=== PATIENT | female | born 1990 | race African-American/Black ===

== ENCOUNTER 2021-01-12 10:39 | Outpatient (CLI) | payer BC, MEDICAID, SELFPAY ==
--- NOTE | ~2021-01-12 | US_ITS ---
EXAMINATION: 1. US OB follow up 2. US OB f/u add gest DATE: 01/12/2021 12:42 INDICATION: Twin . TECHNIQUE: Real-time ultrasound of the pelvis was performed. COMPARISON: None. FINDINGS: There are two living fetuses in transverse lie by a thick membrane. The amniotic fluid volu mes are subjectively normal in both sacs. The placentas are anterior and fundal. Fetus A demonstrates a heart rate of 157 beats per minute (bpm). Fetus B demonstrates a heart rate of 149 bpm. For fetus A, the following biometric data were obtained: Biparietal diameter (BPD): 3.9 cm; head circumference (HC): 15.0 cm; abdominal circumference (AC): 12 .2 cm; femur length (FL): 2.6 cm. These measurements are concordant. Estimated weight is 217 g +/- 33 g, which correlates with 50th percentile when 06/16/21 is used as estimated date of delivery. As single measurements, these parameters are each equal to the following estimated gestational ages: BPD: 17 weeks 6 days. HC: 18 weeks 0 days. AC: 17 weeks 6 days. FL: 18 weeks 0 days. estimated gestational age based solely on measurements from this exam is 18 weeks 0 days +/- 1 weeks 2 days. For fetus B, the following biometric data were obtained: Biparietal diameter (BPD): 3.9 cm; head circumference (HC): 15.0 cm; abdominal circumference (AC): 12 .4 cm; femur length (FL): 2.6 cm. These measurements are concordant. Estimated weight is 218 g +/- 33 g, which correlates with 52nd percentile. As single measurements, these parameters are each equal to the following estimated gestational ages: BPD: 17 weeks 6 days. HC: 18 weeks 1 days. AC: 18 weeks 0 days. FL: 18 weeks 0 days. estimated gestational age based solely on measurements from this exam is 18 weeks 0 days +/- 1 weeks 2 days. IMPRESSION: 1. Dichorionic, diamniotic twins in transverse lie. 2. Estimated weights of 217 g and 218 g, which correlate with 50th percentile and 52nd percent ile, respectively, when 06/16/21 is used as the estimated date of delivery. Reviewed, dictated and finalized at location A. [employer] IMPRESSION: 1. Dichorionic, diamniotic twins in transverse lie. 2. Estimated weights of 217 g and 218 g, which correlate with 50th perce ntile and 52nd percentile, respectively, when 06/16/21 is used as the estimated date of delivery.
== END 2021-01-12 10:40 | disposition home or self-care (01) ==
LOC: ANHIMG 10:43
PROVIDERS: Visit Provider Obstetrics & Gynecology
DX: Z36.9 Encounter for antenatal screening, unspecified (principal); Z3A.18 18 weeks gestation of pregnancy
CPT/HCPCS: 76816

== ENCOUNTER 2021-02-13 10:48 | Outpatient (CLI) | payer BC, MEDICAID, SELFPAY ==
--- NOTE | ~2021-02-13 | US_ITS ---
CORRECTED REPORT US OB >= 14 wk fetus add gest changed to US OB f/u add gest 02/19/2021 sef EXAMINATION: US OB follow up, US OB f/u add gest DATE: 02/13/2021 11:47 (accession [id number]), 02/13/2021 11:50 (accession [id number]) INDICATION: Twin growth assessment, low-lying placenta, second trimester TECHNIQUE: Real-time ultrasound of the pelvis was performed. COMPARISON: None. FINDINGS: Again noted are two fetuses in transverse lie by a thin membrane. The amniotic fluid index is subjectively normal for both gestational sacs. Baby A: The placenta is to the anterior/left and 1.6 cm from the internal cervical os. heart rate is 147 beats per minute (bpm). cardiac activity and movement are noted. The amniotic fluid index is subjectively normal. The following biometric data were obtained: Biparietal diameter (BPD): 5.6 cm; head circumference (HC): 20.4 cm; abdominal circumference (AC): 17.5 cm; femur length (FL): 3.7 cm. These measurements are concordant. Estimated weight is 485 g +/- 72 g, which correlates with the 33rd percentile when 06/16/2021 is used as estimated date of delivery. As single measurements, these parameters are each equal to the following estimated gestational ages with ranges of +/- 2 standard deviations: BPD: 23 weeks 0 days +/- 1 weeks 5 days. HC: 22 weeks 4 days +/- 1 weeks 3 days. AC: 22 weeks 3 days +/- 2 weeks 0 days. FL: 21 weeks 5 days +/- 1 weeks 6 days. estimated gestational age based solely on measurements from this exam is 22 weeks 3 days +/- 1 weeks 4 days. Baby B: The placenta is to the right. heart rate is 147 beats per minute (bpm). cardiac activity and movement are noted. The amniotic fluid index is subjectively normal. The following biometric data were obtained: Biparietal diameter (BPD): 5.6 cm; head circumference (HC): 20.7 cm; abdominal circumference (AC): 17.9 cm; femur length (FL): 3.7 cm. These measurements are concordant. Estimated weight is 507 g +/- 76 g, which correlates with the 45th percentile when 06/16/2021 is used as estimated date of delivery. As single measurements, these parameters are each equal to the following estimated gestational ages with ranges of +/- 2 standard deviations: BPD: 23 weeks 1 days +/- 1 weeks 5 days. HC: 22 weeks 6 days +/- 1 weeks 3 days. AC: 22 weeks 5 days +/- 2 weeks 0 days. FL: 22 weeks 0 days +/- 1 weeks 6 days. estimated gestational age based solely on measurements from this exam is 22 weeks 5 days +/- 1 weeks 4 days. IMPRESSION: 1. Dichorionic, diamniotic twins in transverse lie. 2. Estimated weight is 485 g for baby A and 507 g for baby B, which correlate with the 33rd and 45th percentile, respectively, when 06/16/2021 is used as estimated date of delivery. 3. Low-lying placenta for baby A. Reviewed, dictated and finalized at location A. MTDD IMPRESSION: 1. Dichorionic, diamniotic twins in transverse lie. 2. Estimated weight is 485 g for baby A and 507 g for baby B, which corre late with the 33rd and 45th percentile, respectively, when 06/16/2021 is used as estimated date of delivery. 3. Low-lying placenta for baby A.
== END 2021-02-13 10:49 | disposition home or self-care (01) ==
PROVIDERS: Visit Provider Obstetrics & Gynecology
DX: O44.40 Low lying placenta NOS or without hemorrhage, unspecified trimester (principal); O30.009 Twin pregnancy, unspecified number of placenta and unspecified number of amniotic sacs, unspecified trimester; Z3A.22 22 weeks gestation of pregnancy
CPT/HCPCS: 76810; 76816

== ENCOUNTER → 2021-03-09 11:20 | Outpatient (CLI) | payer BC, MEDICAID, SELFPAY ==
--- NOTE | ~2021-03-09 | US_ITS ---
EXAMINATION: US OB follow up, US OB f/u add gest DATE: 03/09/2021 12:02 INDICATION: Multiple gestations. Estimated gestational age of 25 weeks and 6 days. TECHNIQUE: Real-time ultrasound of the pelvis was performed. COMPARISON: Ultrasound 02/13/2021, 01/12/2021 FINDINGS: There are 2 intrauterine fetuses in separate gestational sacs. Fetus A is in vertex presentation. The placenta is anterior, 3.4 cm from the cervix. heart rate is 151 beats per minute (bpm). The am niotic fluid volume is subjectively normal in this gestational sac. The following biometric data were obtained for Fetus A: Biparietal diameter (BPD): 6.6 cm; head circumference (HC): 23.9 cm; abdominal circumference (AC): 20 .4 cm; femur length (FL): 4.7 cm. These measurements are concordant. Estimated weight is 809 g +/- 121 g, which correlates with 23rd percentile when 06/16/21 is used as estimated date of delivery. As single measurements, these parameters are each equal to the following estimated gestational ages w ith ranges of +/- 2 standard deviations: BPD: 26 weeks 4 days (24 weeks 3 days - 28 weeks 5 days). HC: 26 weeks 0 days (24 weeks 0 days - 28 weeks 0 days). AC: 25 weeks 0 days (22 weeks 6 days - 27 weeks 2 days). FL: 25 weeks 4 days (23 weeks 4 days - 27 weeks 5 days). estimated gestational age based solely on measurements from this exam is 25 weeks 6 days +/- 1 weeks 6 days. Fetus B is in transverse lie. The fundus is right posterior and fundal. The amniotic fluid volume is subjectively normal in this sac. The following biometric data were obtained for Fetus B: Biparietal diameter (BPD): 6.8 cm; head circumference (HC): 24.7 cm; abdominal circumference (AC): 20 .7 cm; femur length (FL): 5.0 cm. These measurements are discordant with high FL/AC. Estimated weight is 887 g +/- 133 g, which correlates with 48th percentile when 06/16/21 is used as estimated date of delivery. As single measurements, these parameters are each equal to the following estimated gestational ages w ith ranges of +/- 2 standard deviations: BPD: 27 weeks 1 days (25 weeks 0 days - 29 weeks 3 days). HC: 26 weeks 6 days (24 weeks 5 days - 28 weeks 6 days). AC: 25 weeks 2 days (23 weeks 0 days - 27 weeks 3 days). FL: 26 weeks 6 days (24 weeks 5 days - 28 weeks 6 days). estimated gestational age based solely on measurements from this exam is 26 weeks 4 days +/- 1 weeks 6 days. IMPRESSION: 1. Living dichorionic, diamniotic twin fetuses in vertex presentation and transverse lie, respectivel y. 2. Fetus A estimated weight is 809 g +/- 121 g, which correlates with 23rd percentile when 05/22 06/10 is used as estimated date of delivery. 3. Fetus B estimated weight is 887 g +/- 133 g, which correlates with 48th percentile. 4. Discordant biometrics for Fetus B with FL/AC greater than 2 standard deviations above the mean. Reviewed, dictated and finalized at location B. IMPRESSION: 1. Living dichorionic, diamniotic twin fetuses in vertex presentation and trans verse lie, respectively. 2. Fetus A estimated weight is 809 g +/- 121 g, which correlates with 23 rd percentile when 06/16/21 is used as estimated date of delivery. 3. Fetus B estimated weight is 887 g +/- 133 g, which correlates with 48 th percentile. 4. Discordant biometrics for Fetus B with FL/AC greater than 2 standard deviat ions above the mean.
== END ==
PROVIDERS: Visit Provider Obstetrics & Gynecology
DX: O30.90 Multiple gestation, unspecified, unspecified trimester (principal); Z3A.00 Weeks of gestation of pregnancy not specified
CPT/HCPCS: 76816

== ENCOUNTER 2021-03-30 07:26 | Outpatient (RCR) | payer BC, MEDICAID, SELFPAY ==
[2021-03-27 20:13] LABS: Hematocrit 33.2 % (37.0-47.0); Hemoglobin 10.9 g/dL (12.0-15.0); Mean Corpuscular HGB Conc 32.8 g/dl (32-36); Mean Corpuscular Volume 94.3 fl (80-100); Mean Platelet Volume 10.9 fl (7.4-10.4); Platelet Count Result 271 k/mm3 (150-375); Red Blood Count 3.52 M/mm3 (4.2-5.4); Red Cell Distribution Width 13.2 % (11.5-14.5)
[2021-03-27 20:21] LABS: Glucose 1 Hour PP 50gm Dose 117 mg/dL
[2021-03-30] MEDS: RHO(D) IMMUNE GLOBULIN 300 MCG/2 ML SYRINGE IM (15:07)
[2021-03-31 16:09] LABS: HIV 1 2 Ag Ab 4th Gen w Rflxs Non-reactive (Non-reactive)
== END 2021-03-30 07:28 | disposition home or self-care (01) ==
LOC: ANHBWCLAB 07:26
PROVIDERS: Visit Provider Obstetrics & Gynecology
DX: Z29.13 Encounter for prophylactic Rho(D) immune globulin (principal); O36.0190 Maternal care for anti-D [Rh] antibodies, unspecified trimester, not applicable or unspecified; Z3A.00 Weeks of gestation of pregnancy not specified
CPT/HCPCS: 36415; 82947; 85027; 85461; 87389; 90384; 96372; J2790

== ENCOUNTER 2021-06-01 08:34 | Outpatient (RCR) | payer BC, MEDICAID, SELFPAY ==
[2021-04-24 15:32] VITALS: BP 94/65; PULSE 96
[2021-04-28 12:20] VITALS: PULSE 105
[2021-05-01 16:43] VITALS: BP 96/65; PULSE 99
[2021-05-04 17:05] VITALS: BP 95/66; PULSE 107
[2021-05-08 14:35] VITALS: BP 90/74; PULSE 93
[2021-05-12 14:48] VITALS: BP 99/72; PULSE 105
[2021-05-15 16:17] VITALS: BP 112/73; PULSE 102
[2021-05-18 17:05] VITALS: BP 90/69
[2021-05-22 16:18] VITALS: BP 105/71; PULSE 80
[2021-05-25 11:07] VITALS: BP 103/73; PULSE 101
[2021-05-29 14:48] VITALS: BP 103/72; PULSE 88
--- NOTE | ~2021-06-01 | US_ITS ---
EXAMINATION: US OB limited DATE: 06/01/2021 09:29 INDICATION: Twin gestation. Third trimester. TECHNIQUE: Real-time ultrasound of the pelvis was performed. COMPARISON: Ultrasound 03/09/2021, 01/12/2021 FINDINGS: There are 2 fetuses in transverse lie. Baby A's head is to the left. Baby B's head is to the right. T he placentas are anterior and fundal/posterior. heart rate is 144 beats per minute (bpm) for Ba by A and 154 bpm for Baby B. IMPRESSION: 1. Living dichorionic, diamniotic twin fetuses, both in transverse lie. Reviewed, dictated and finalized at location A.
[2021-06-01 09:07] VITALS: BP 103/72; PULSE 88
== END 2021-06-08 13:25 | disposition home or self-care (01) ==
LOC: ANHOBOP 08:34
PROVIDERS: Visit Provider Obstetrics & Gynecology
DX: O30.043 Twin pregnancy, dichorionic/diamniotic, third trimester (principal); Z3A.32 32 weeks gestation of pregnancy; Z3A.33 33 weeks gestation of pregnancy; Z3A.34 34 weeks gestation of pregnancy; Z3A.35 35 weeks gestation of pregnancy; Z3A.36 36 weeks gestation of pregnancy; Z3A.37 37 weeks gestation of pregnancy
CPT/HCPCS: 59025; 76815

== ENCOUNTER 2021-06-05 06:01 | Inpatient (IN) | payer BC, MEDICAID, SELFPAY ==
[2021-06-05] VITALS (111 sets, daily range): BP systolic 80–171; BP diastolic 49–114; PULSE 46–89; RESP 12–20; TEMP 36–36.7; O2SAT 87–100
--- NOTE | 2021-06-05 06:12 | WPDANESEPPF ---
Anes - Initial Pre Proc Eval Procedure: Operation Date: 06/05/21 07:30 Proposed Procedures p Primary Section-Twins - Staci Slater MD Date/Time: 06/05/21 06:12 Surgeon: Staci Slater MD Pre Op Diagnosis: Labor Patient Data Age: 30 Gender: F Height: Weight: Allergies Allergy/AdvReac Type Severity Reaction Status Date / Time No Known Allergies Allergy Verified 05/29/21 13:48 Home Medications Medication Instructions Recorded Confirmed Type 12-iron 29 mg-methfolate 1 ea PO DAILY #90 ea 11/11/20 05/29/[address]-dha [address] calcium carbonate 200 mg calcium 200 mg PO BID PRN 03/09/21 05/29/21 History (500 mg) chewable tablet Patient hx anesthesia problems: none Family hx anesthesia problems: none PMFSH Past Medical History Medical History x2 Asthma Surgical History Surgical History [place] teeth extracted 2019 Family History Family History Mother Hypertension Social History Social History Smoking status: Never smoker Alcohol intake: never Substance use: never Gender identity (if verbalized by the patient): Female Spiritual care concerns: No Anes - Eval Final PreProcedure Day of Procedure 06/05/21 06:12 Patient weight: overweight Heart: regular rate and rhythm Lungs: clear to auscultation Airway: Mallampati scale class II Neurological: alert and oriented Last oral intake: >/= 8 hours ASA classification: II Emergent: no Anesthetic plan: proceed Anesthesia type and monitoring: regional spinal and standard monitoring Informed Consent: The patient's anesthetic plan and its attendant risks and benefits were discussed with the patient/family/POA. Questions were solicited and answers provided to the satisfaction of the patient/family/POA.
[2021-06-05 07:04] LABS: Basophils Percent Auto 0.4 % (0.2-1.2); Eosinophils Percent Auto 0.6 % (0-4.4); Hematocrit 31.5 % (37.0-47.0); Hemoglobin 10.4 g/dL (12.0-15.0); Immature Granulocyte Absolute 0.05 K/mm3 (0.00-0.031); Immature Granulocyte Percent A 0.7 % (0-0.5); Lymphocytes Absolute Auto 2.25 K/mm3 (0.9-3.2); Lymphocytes Percent Auto 32.6 % (18.3-44.2); Mean Corpuscular Hemoglobin 29.8 pg (26-34); Mean Corpuscular Volume 90.3 fl (80-100); Mean Platelet Volume 12.4 fl (7.4-10.4); Monocytes Absolute Auto 0.9 K/mm3 (0.1-0.6); Monocytes Percent Auto 12.3 % (2.6-8.5); Neutrophils Absolute Auto 3.7 K/mm3 (1.3-6.7); Neutrophils Percent Auto 53.4 % (45.5-73.1); Platelet Count Result 144 k/mm3 (150-375); Red Blood Count 3.49 M/mm3 (4.2-5.4); Red Cell Distribution Width 13.2 % (11.5-14.5); White Blood Count 6.9 K/mm3 (4.5-10.0)
--- NOTE | 2021-06-05 07:19 | P.HPUP_ITS ---
History and Physical Update Update Date/Time: 06/05/21 07:19 History and Physical has been reviewed, including an updated exam of the patient. There are NO changes in the patient's condition. Bedside U/S confirms transverse presentation of baby A so C section still recommended, and she a grees. Risks, benefits, and alternatives have been discussed and questions answered. Patient agrees to proceed with procedure.
--- NOTE | 2021-06-05 07:19 | PM.IMHP ---
H&P: HPI History of Present Illness Date/Time: 06/05/21 07:19 at 38+3 with di-di twins here for C section due to malpresentation baby A. No complaints today Chief Complaint: twin , twin A transverse Review of Systems Review of Systems: All systems reviewed & are unremarkable except as noted in HPI and below PMFSH Past Medical History Medical History x2 Asthma Surgical History Surgical History [place] teeth extracted 2019 Family History Family History Mother Hypertension Social History Social History Smoking status: Never smoker Alcohol intake: never Substance use: never Gender identity (if verbalized by the patient): Female Spiritual care concerns: No Meds Home Medications and Allergies Home Medications Medication Instructions Recorded Confirmed Type 12-iron 29 mg-methfolate 1 ea PO DAILY #90 ea 11/11/20 05/29/21 Rx [address]-dha [address] calcium carbonate 200 mg calcium 200 mg PO BID PRN 03/09/21 05/29/21 History (500 mg) chewable tablet Allergies Allergy/AdvReac Type Severity Reaction Status Date / Time No Known Allergies Allergy Verified 05/29/21 13:48 Vital Signs Vital Signs - 24 hr 06/05/21 06:34 06/05/21 06:45 Pulse Rate 87 80 Blood Pressure 121/94 H 112/87 Exam Const: General: healthy appearing, no acute distress, alert and awake Resp: Auscultation: clear to auscultation bilaterally Cardio: Rate: regular rate Rhythm: regular rhythm GI: Inspection: non-distended and other (gravid) GI Palp: Yes Soft to palpation and No Tenderness to palpation present (GI) Extrem: General: no pedal edema and no calf tenderness Psych: Mental Status: mental status grossly normal H&P: Results Labs Labs: Short CBC 06/05/21 Range/Units 06:55 WBC 6.9 (4.5-10.0) K/mm3 Hgb 10.4 L (12.0-15.0) g/dL Hct 31.5 L (37.0-47.0) % Plt Count 144 L (150-375) k/mm3 Assessment and Plan Assessment and plan (1) Dichorionic diamniotic twin gestation: Code(s): O30.049 - Twin , dichorionic/diamniotic, unspecified trimester Status: Acute Assessment and Plan: Proceed with primary C section due to transverse presentation of twin A. She signed consent after risks, benefits, complications, and alternatives discussed. She expressed understanding and agrees (2) Transverse or oblique presentation: Code(s): O32.2XX0 - Maternal care for transverse and oblique lie, not applicable or unspecified Status: Acute
[2021-06-05] MEDS: LACTATED RINGERS 250 ML 999 ML IVPB (07:20)
[2021-06-05] MEDS: LACTATED RINGERS 1,000 ML 125 ML IV CONT (07:20)
--- NOTE | 2021-06-05 08:37 | P.OP_ITS ---
Procedure Note - Detailed Date of Procedure 06/05/21 Pre-op Diagnosis Twin gestation, transverse presentation twin A Post-op Diagnosis same Procedure Performed Primary LTCS Surgeon Staci Slater MD Anesthesia spinal Indications Full term twin , transverse presentation twin A Findings Two male infants, baby A-transverse, Apgars 6/8, 5#11oz; baby B-transverse, Apgars 8/9, 5#13oz; normal uterus, tubes, and ovaries Description of Procedure She was taken to the operating room where spinal anesthesia was obtained and found to be adequate. She was prepared and draped in the normal sterile fashion in the dorsal supine position with a leftward tilt. A Pfannenstiel skin incision was made with a scalpel and extended to the underlying layer of fascia. The fascia was incised in the midline with a scalpel then extended laterally with the Cash scissors. The underlying rectus muscles were dissected off bluntly and sharply. The rectus muscles were in the midline. The peritoneum was entered sharply and extended inferiorly and superiorly with good visualization of the bladder. The bladder blade was inserted. The lower uterine segment was incised in a transverse fashion with the scalpel. The incision was stretched in a cephalocaudal direction. The membranes were ruptured with clear fluid noted of baby A. Baby A's back was toward the incision. The hips were also near the incision. S placed on the hips until the level were delivered. The head was flexed and brought easily through the incision. The cord was clamped x2 and cut. The was passed to the waiting nurse. Cord gas and cord blood was obtained. Exploration of the uterus revealed membranes still intact for baby B. baby B had been transverse but was easily pushed toward vertex presentation. Membranes were ruptured for baby B with clear fluid noted. The head was delivered atraumatically. The shoulders and body were delivered easily. The cord was clamped x2 and cut. The infant was passed to the waiting nurse. Cord gas and cord blood was obtained for baby B. both placentas were spontaneously delivered. The uterus was exteriorized and cleared of all clot and debris. The uterine i ncision was closed using 0 Vicryl in a running locked fashion. The uterus was returned to the abdomen. The gutters were cleared of all clots and debris. Uterine incision was reinspected with excellent hemostasis noted. The rectus muscles were approximated using an 0 Vicryl [id number] suture. Any bleeding points on the rectus muscles were cauterized. The fascia was closed using 0 Vicryl in a running fashion. The subcutaneous tissue was irrigated. All bleeding points were cauterized. The skin was closed using Insorb absorbable william. She tolerated the procedure well. Sponge, lap, needle, and instrument counts were correct x2. She was taken to the recovery room in stable condition. Estimated Blood Loss 705 Drains Yes (Diaz) Packing No Pathology yes Complications No immediate complications Condition stable Disposition floor
[2021-06-05] MEDS: diphenhydrAMINE HCl INJ 50 MG/ML VIAL 25 MG IV PUSH (12:00)
[2021-06-05] MEDS: OXYTOCIN 30 UNITS/NS 500 ML 30 UNITS/500 ML BAG 125 UNITS IV CONT (12:06)
[2021-06-05 12:56] LABS: Rapid Plasma Reagin Non-Reactive (NonReactive)
--- NOTE | 2021-06-05 13:10 | PC.NURSE ---
Called Dr. Slater with BPs. Orders received. May transfer pt to PP after drawing labs. Call for BPs >165/105.
--- NOTE | 2021-06-05 13:33 | PC.NURSE ---
Patient transferred to post room #[id number] via stretcher. Support person present. Oriented to unit, room, information board, rooming in, admission packet and security measures. Patient verbalizes understanding.
[2021-06-05 13:35] LABS: Basophils Percent Auto 0.3 % (0.2-1.2); Eosinophils Percent Auto 0.3 % (0-4.4); Hematocrit 29.5 % (37.0-47.0); Hemoglobin 9.7 g/dL (12.0-15.0); Immature Granulocyte Absolute 0.09 K/mm3 (0.00-0.031); Immature Granulocyte Percent A 1.2 % (0-0.5); Immature Platelet Fraction Pct 14.3 % (0.9-11.2); Lymphocytes Absolute Auto 1.68 K/mm3 (0.9-3.2); Lymphocytes Percent Auto 22.6 % (18.3-44.2); Mean Corpuscular HGB Conc 32.9 g/dl (32-36); Mean Corpuscular Volume 91.3 fl (80-100); Mean Platelet Volume 11.9 fl (7.4-10.4); Monocytes Absolute Auto 0.6 K/mm3 (0.1-0.6); Monocytes Percent Auto 7.7 % (2.6-8.5); Neutrophils Absolute Auto 5.1 K/mm3 (1.3-6.7); Neutrophils Percent Auto 67.9 % (45.5-73.1); Platelet Count Result 126 k/mm3 (150-375); Red Blood Count 3.23 M/mm3 (4.2-5.4); White Blood Count 7.4 K/mm3 (4.5-10.0)
[2021-06-05 13:49] LABS: Alanine Aminotransferase 20 U/L (4-35); Albumin Level 2.6 g/dL (3.5-5.1); Alkaline Phosphatase 195 U/L (38-126); Anion Gap 5 mmol/L (8-16); Aspartate Amino Transferase 33 U/L (14-36); Bilirubin,Total 0.4 mg/dL (0.2-1.3); Blood Urea Nitrogen 9 mg/dL (7-17); Calcium 8.5 mg/dL (8.4-10.2); Carbon Dioxide 24 mmol/L (22-30); Chloride 104 mmol/L (98-107); Estimated Glomerular Filt Rate > 60; Glucose 60 mg/dL (65-105); Sodium 133 mmol/L (137-145); Uric Acid 5.1 mg/dL (2.5-7.5)
[2021-06-05] MEDS: DEXTROSE 5%/0.45% SOD CHL 1,000 ML 125 ML IV CONT (13:51)
[2021-06-05] MEDS: KETOROLAC 30 MG/ML VIAL (*BKC) IV PUSH ×2 (17:03→23:24)
[2021-06-06 04:15] VITALS: BP 129/84; PULSE 56; RESP 20; TEMP 36.6; O2SAT 99
[2021-06-06] MEDS: HYDROcodone/acetaminophen (*CRX) 5-325 MG TABLET 1 TAB PO (05:41)
[2021-06-06] MEDS: KETOROLAC 30 MG/ML VIAL (*BKC) IV PUSH (05:42)
[2021-06-06] MEDS: diphenhydrAMINE HCl INJ 50 MG/ML VIAL 25 MG IV PUSH (05:42)
[2021-06-06 06:06] LABS: Basophils Percent Auto 0.2 % (0.2-1.2); Eosinophils Percent Auto 0.3 % (0-4.4); Hematocrit 25.5 % (37.0-47.0); Hemoglobin 8.3 g/dL (12.0-15.0); Immature Granulocyte Absolute 0.04 K/mm3 (0.00-0.031); Immature Granulocyte Percent A 0.4 % (0-0.5); Lymphocytes Absolute Auto 1.72 K/mm3 (0.9-3.2); Mean Corpuscular HGB Conc 32.5 g/dl (32-36); Mean Corpuscular Hemoglobin 30.2 pg (26-34); Mean Corpuscular Volume 92.7 fl (80-100); Mean Platelet Volume 12.1 fl (7.4-10.4); Monocytes Percent Auto 9.1 % (2.6-8.5); Platelet Count Result 120 k/mm3 (150-375); Red Blood Count 2.75 M/mm3 (4.2-5.4); White Blood Count 10.8 K/mm3 (4.5-10.0)
[2021-06-06] MEDS: MULTIVIT/MIN/PREN/FOL AC/IRON TABLET 1 TAB PO (07:51)
[2021-06-06] MEDS: POLYSACCHARIDE IRON COMPLEX 150 MG CAPSULE PO ×2 (07:51→16:53)
[2021-06-06 08:55] VITALS: BP 109/66; PULSE 59; RESP 18; TEMP 36.7; O2SAT 99
[2021-06-06] MEDS: IBUPROFEN 600 MG TABLET PO ×3 (09:19→23:40)
[2021-06-06] MEDS: HYDROcodone/acetaminophen (*CRX) 10-325 MG TABLET 1 TAB PO ×5 (09:22→23:40)
--- NOTE | 2021-06-06 09:39 | PM.OBPNVD ---
OB - PN: Subj Subjective Date/time seen: 06/06/21 09:39 Patient seen at bedside. Patient doing reasonably well this morning. Pain well controlled with medication. Reports mild headache. Denies any chest pain, shortness of breath, or vomiting. Has tolerated small amount of p.o. diet. No ambulation. Has not yet voided. No flatus. OB - PN: Obj Data Labs CBC & Chem 7: 06/06/21 04:42 06/05/21 13:22 Labs: Laboratory Results - last 24 hr 06/05/21 06/05/21 06/05/21 06:55 13:22 13:22 WBC 7.4 RBC 3.23 L Hgb 9.7 L Hct 29.5 L MCV 91.3 MCH 30.0 MCHC 32.9 RDW 13.0 Plt Count 126 L MPV 11.9 H Immature Gran % (Auto) 1.2 H Neut % (Auto) 67.9 Lymph % (Auto) 22.6 Morris % (Auto) 7.7 Eos % (Auto) 0.3 Baso % (Auto) 0.3 Lymph # (Auto) 1.68 Morris # (Auto) 0.6 Eos # (Auto) 0.0 Baso # (Auto) 0.0 Abs Immat Gran (auto) 0.09 H Absolute Neuts (auto) 5.1 Absolute Nucleated RBC 0.0 Nucleated RBC % 0.0 % Immature Plt Fraction 14.3 H Sodium 133 L Potassium 4.0 Chloride 104 Carbon Dioxide 24 Anion Gap 5 L BUN 9 Creatinine 0.70 Estim Creat Clear Calc Not Reportable Estimated GFR > 60 Glucose 60 L Uric Acid 5.1 Calcium 8.5 Total Bilirubin 0.4 AST 33 ALT 20 Alkaline Phosphatase 195 H Total Protein 6.0 L Albumin 2.6 L RPR Non-reactive Blood Type Antibody Screen Screen Baby's Blood Type Baby's CHRISTOPHER Doses of RhIg Required 06/06/21 06/06/21 04:42 04:43 WBC 10.8 H RBC 2.75 L Hgb 8.3 L Hct 25.5 L MCV 92.7 MCH 30.2 MCHC 32.5 RDW 13.0 Plt Count 120 L MPV 12.1 H Immature Gran % (Auto) 0.4 Neut % (Auto) 74.0 H Lymph % (Auto) 16.0 L Morris % (Auto) 9.1 H Eos % (Auto) 0.3 Baso % (Auto) 0.2 Lymph # (Auto) 1.72 Morris # (Auto) 1.0 H Eos # (Auto) 0.0 Baso # (Auto) 0.0 Abs Immat Gran (auto) 0.04 H Absolute Neuts (auto) 8.0 H Absolute Nucleated RBC 0.0 Nucleated RBC % 0.0 % Immature Plt Fraction Sodium Potassium Chloride Carbon Dioxide Anion Gap BUN Creatinine Estim Creat Clear Calc Estimated GFR Glucose Uric Acid Calcium Total Bilirubin AST ALT Alkaline Phosphatase Total Protein Albumin RPR Blood Type AB Negative Antibody Screen TNP Screen Negative Baby's Blood Type A pos Baby's CHRISTOPHER Negative Doses of RhIg Required 1 OB - PN A/P Assessment and Plan (1) Delivery by section using transverse incision of lower segment of uterus: Code(s): O82 - Encounter for delivery without indication Status: Acute Assessment and Plan: POD#1 doing well continue routine postoperative care pain management PRN encourage ambulation and use of IS patient declines circumcision for infants Time Spent With Patient Time: Total time spent is greater than 50% in coordination of care (as documented) at patient's floor/unit and/or counseling patient: Exam Const: General: cooperative, healthy appearing, comfortable and no acute distress GI: Inspection: non-distended GI Palp: Yes Soft to palpation and Yes Tenderness to palpation present (GI) (appropriately tender) Other: fundus firm below umbilcus Extrem: Right lower extremity: no edema Left lower extremity: no edema Other: no calf tenderness
[2021-06-06] MEDS: RHO(D) IMMUNE GLOBULIN 300 MCG/2 ML SYRINGE IM (10:33)
--- NOTE | 2021-06-06 11:31 | WPDANLDNPN2 ---
Anes-Prog Note L&D-Neuraxial Date/Time: 06/06/21 11:31 Neuraxial medications: intrathecal PF morphine Opiod-related complaints: none Patient feedback: Patient satisfied with post-operative pain management.
--- NOTE | 2021-06-06 11:31 | WPDANLDPN2 ---
Anes-Prog Note L&D Date/Time: 06/06/21 11:31 Comfortable throughout: section Neuraxial method: spinal Epidural/Spinal procedure site: clean & non-tender Neuro status: Neuro function grossly intact. Cardiovascular status: normal Respiratory status: normal Airway patency: baseline Mental status: baseline Post-Op hydration status: normal Vital Signs: Last Vital Signs Temp 36.7 C 06/06/21 08:55 Pulse 59 L 06/06/21 08:55 Resp 18 06/06/21 08:55 BP 109/66 06/06/21 08:55 Pulse Ox 99 06/06/21 08:55 Pain score (VAS): 0 I/O: Intake & Output 06/05/21 06/06/21 06/06/21 23:59 07:59 15:59 Intake Total 640 300 240 Output Total 1700 1800 Balance -1060 -1500 240 Post-procedural complaints: none Patient feedback: Patient satisfied with anesthetic care.
[2021-06-06] MEDS: DOCUSATE SODIUM 100 MG CAPSULE PO ×2 (13:17→16:53)
[2021-06-06 20:00] VITALS: BP 124/83; PULSE 78; RESP 20; TEMP 36.8; O2SAT 100
[2021-06-06] MEDS: SIMETHICONE 80 MG TAB.CHEW PO (23:40)
[2021-06-07] MEDS: SIMETHICONE 80 MG TAB.CHEW PO ×3 (05:11→15:53)
[2021-06-07] MEDS: HYDROcodone/acetaminophen (*CRX) 10-325 MG TABLET 1 TAB PO ×2 (05:11→08:30)
[2021-06-07] MEDS: IBUPROFEN 600 MG TABLET PO ×2 (05:11→15:52)
[2021-06-07 08:00] VITALS: BP 123/80; PULSE 62; RESP 16; TEMP 36.6; O2SAT 97
--- NOTE | 2021-06-07 08:20 | PM.OBPNVD ---
OB - PN: Subj Subjective Date/time seen: 06/07/21 08:20 Patient doing well. Pain well controlled with medication. Denies headache, chest pain, shortness of breath, nausea, vomiting. Tolerating p.o. diet. Ambulating without difficulty. Voiding well. No flatus yet. OB - PN: Obj Data Labs CBC & Chem 7: 06/06/21 04:42 06/05/21 13:22 Labs: Laboratory Results - last 24 hr 06/06/21 04:43 Blood Type AB Negative Antibody Screen TNP Screen Negative Baby's Blood Type A pos Baby's CHRISTOPHER Negative Doses of RhIg Required 1 OB - PN A/P Assessment and Plan (1) Delivery by section using transverse incision of lower segment of uterus: Code(s): O82 - Encounter for delivery without indication Status: Acute Assessment and Plan: POD#2 doing well continue routine postoperative care encourage ambulation pain management PRN possible discharge home today emergency precautions reviewed Time Spent With Patient Time: Total time spent is greater than 50% in coordination of care (as documented) at patient's floor/unit and/or counseling patient: Exam Const: General: cooperative, healthy appearing, comfortable and no acute distress GI: GI Palp: Yes Soft to palpation and Yes Tenderness to palpation present (GI) (appropriately tender) Other: softly distended, fundus firm below umbilicus, inc c/d/i Extrem: Right lower extremity: no edema Left lower extremity: no edema Other: no calf tenderness
--- NOTE | 2021-06-07 08:24 | P.DS_ITS ---
DS: Admitting Diagnosis Admitting Diagnosis Admitting Diagnosis: Twin gestation malpresentation OB - DS: Summary OB Procedures : None OB Procedures Intrapartum: OB Procedures: : None Peripartum Data Procedures: Procedures Operation Date: 06/05/21 07:30 Actual Procedure Side Surgeon p Section Staci Slater MD Time Spent with Patient Time attestation: Total time spent providing and/or coordinating discharge services: DS: Data Data Completed and Pending Pending studies at discharge: Pending at discharge 06/05/21 08:10 Surgical [PTH] Routine Labs on day of discharge: Labs from last 24 hours 06/06/21 04:43 Blood Type AB Negative Antibody Screen TNP Screen Negative Baby's Blood Type A pos Baby's CHRISTOPHER Negative Doses of RhIg Required 1 Discharge Plan Discharge Attending physician on discharge: Emely Schafer Discharging Clinician: Emely Schafer Anticipated Discharge Date/Time: 06/07/21 12:00 Patient Disposition: Home, Self-Care Activity: may drive after 2 weeks, as tolerated and pelvic rest Diet: regular Discharge Instructions: Call office ([phone]) to schedule the following appointments: 1. Postoperative/wound check in 2 weeks. 2. visit in 4-6 weeks. You may take Ibuprofen 600mg every 6 hours as needed for pain. I have sent a prescription for a stronger pain medication, Melrose, to your pharmacy. You may take this as prescribed for breakthrough pain (pain that is not controlled with Ibuprofen). No driving for at least two weeks. You also may not drive while taking narcotics. Pain medication may make you constipated. It may be helpful to take an uyrd-lfj-ayuqjxu stool softener, such as Colace and/or Senokot, along with the pain medication to help lessen constipation. Call office or go to ED for pain not controlled with medication, headache, chest pain, shortness of breath, fever, chills, persistent nausea or vomiting, severe abdominal pain, heavy vaginal bleeding >2 pads/hour, foul vaginal discharge or odor, any redness near incision, severe pain, pus or drainage from incision site, or problems with your breasts. Patient Instructions: Antibiotic Form Stand Alone Forms: General Discharge Information Follow-up/Referrals: Staci Slater MD [Physician] - Discharge Medications: New hydrocodone-acetaminophen 5-325 mg Tablet 1 - 2 tablet PO Q4-6H PRN (Reason: Moderate Pain (4-6)) Qty: 30 RF: 0 Continued PNV 30-omav-nnyufmxzibyt-dha 29 mg iron-1 mg -350 mg comb pack,tablet DR,capsule DR 1 ea PO DAILY Qty: 90 RF: 2 calcium carbonate [Tums] 200 mg calcium (500 mg) tablet,chewable 200 mg PO BID PRN (Reason: Heartburn) RF: 0 Date of admission: 06/05/21 06:01 Primary Care Provider: PHYSICIAN,POST CLOSING SPECIALIST Admitting Provider: Staci Slater Attending physician on admission: Staci Slater Condition: Stable
[2021-06-07] MEDS: MULTIVIT/MIN/PREN/FOL AC/IRON TABLET 1 TAB PO (08:29)
[2021-06-07] MEDS: DOCUSATE SODIUM 100 MG CAPSULE PO (08:30)
[2021-06-07] MEDS: POLYSACCHARIDE IRON COMPLEX 150 MG CAPSULE PO (08:30)
--- NOTE | 2021-06-07 14:54 | PC.NURSE ---
Patient viewed the discharge video Mother & Baby Care, The First Two Weeks . Patient was given the opportunity and encouraged to ask questions. Patient verbalized understanding of information shared and has been given the mother/baby guide for home reference.
[2021-06-07] MEDS: HYDROcodone/acetaminophen (*CRX) 5-325 MG TABLET 1 TAB PO (15:51)
[2021-06-10 08:56] VITALS: BP 110/72; PULSE 86; RESP 20; TEMP 36.9; O2SAT 99
== END 2021-06-07 18:44 | disposition home or self-care (01) | DRG 788 ==
LOC: ANHLDR 06:29 → ANHOB2 06-07 08:25 → ANHLDR 06-10 08:40 → ANHOB2 06-10 08:40
PROVIDERS: Admitting Provider Obstetrics & Gynecology; Visit Provider Student in an Organized Health Care Education/Training Program
PROC: 10D00Z1 Extraction of Products of Conception, Low, Open Approach (ICD-10-PCS; CPT 59514; principal; 2021-06-05 07:30)
DX: O30.043 Twin pregnancy, dichorionic/diamniotic, third trimester (principal); Z37.2 Twins, both liveborn; Z3A.38 38 weeks gestation of pregnancy; O99.52 Diseases of the respiratory system complicating childbirth; J45.909 Unspecified asthma, uncomplicated
CPT/HCPCS: 36415; 80053; 84550; 85025; 85055; 85461; 86592; 86850; 86900; 86901; 88307; 90384; A9270; J0131; J1200; J1885; J2210; J2274; J2370; J2405; J2590; J2790; J7120

== ENCOUNTER 2025-07-21 17:06 | Emergency (ER) | payer OTHER, SELFPAY ==
--- OUTSIDE RECORDS SUMMARY | 2025-07-21 17:09 | XMS_ITS | Clinical Summary ---
Author Organization [facility] Address [address] [place] [id number] Phone Care Team Providers Care Wire Brush Operator Name Role Phone No, Physician Primary Care Provider [phone] Allergies No known active allergies Medications trimethoprim-po lymyxin B (POLYTRIM) ophthalmic solutionIndicat ions:Blepharoco njunctivitis Administer 2 drops into the left eye every 4 (four) hours. 10 mL 8 Active Additional Information Patient not taking.Reported on 03/23/2019 fluticasone propionate (FLONASE) 50 mcg/actuation nasal spray Administer 2 sprays into each nostril daily 16 g 9 Active oxymetazoline (AFRIN) 0.05 % nasal spray Administer 2 sprays into each nostril 2 (two) times a day 30 mL 9 Active Active Problems Problem Noted Date Diagnosed Date Lumbar strain, initial encounter 12/22/2020 Abdominal wall strain, initial encounter 021 Pain of left eye 07/25/2018 Assessment & Plan (07/25/2018 12:29 PM CDT): Pain and redness in left eye. Pt also reports change in vision. No discharge but does state she has watery eyes and light sensitivity.Pt. Reports increase pain with EOM's. Recommend that patient see an health informatics specialist related to the pain, change in vision, light sensitivity. Pt states she cannot go today although I did make an appointment for her. She is going to go tomorrow. I stressed to her that if things get worse, she must see an health informatics specialist. I will order Polytrim drops for her. She is to go to [facility] tomorrow at 1:40 Body mass index (BMI) 23.0-23.9, adult 7 Assessment & Plan (08/16/2017 10:37 AM CDT): BMI Follow-up includes: nutrition counseling, exercise counseling and education provided. Preventative health care 08/16/2017 Assessment & Plan (08/16/2017 10:50 AM CDT): Patient here to today for physical exam. The patient was evaluated and all health maintenance objectives were discussed and addressed. Pain of both hip joints 08/16/2017 Assessment & Plan (08/16/2017 10:50 AM CDT): As above she has had hip x-rays about 7 years ago which were normal we will recheck please refer her to Orthopedics, She has seen physical therapy states that this problem has been going on many years Chronic midline low back pain with left-sided sc iatica 08/16/2017 Assessment & Plan (08/16/2017 10:50 AM CDT): I reviewed some of her old x-rays from about 7 years ago at this point we will restart with x-rays of her hips and back check lab work refer her to Ortho We will also give her meloxicam 15 to start with Screening cholesterol level 08/16/2017 Assessment & Plan (08/16/2017 10:50 AM CDT): We will draw fasting lipid profile in the next few weeks Medical History Medical History Date Comments Asthma Social History Tobacco Use Types Packs/Day Years Used Date Smoking Tobacco: Never Smokeless Tobacco: Never Alcohol Use Standard Drinks/Week Comments No 0 (1 standard drink = 0.6 oz pur e alcohol) Personal Safety Answer Date Recorded Getting School Help Needed Not on file 01/15 Comments No Sex and Gender Information Value Date Recorded Sex Assigned at Not on file Legal Sex Female 5:32 PM RN TRANSITIONAL Gender Identity Not on file Sexual Orientation Not on file Obstetrics History Para Term AB IAB SAB Ectopic Multiple Livin g Live Births 1 Date Outcome GA Total Labor Labor/2nd/3rd Weight Sex Type Anes PTL Dianne A1 A5 Name Clin Last Filed Vital Signs Vital Sign Reading Time Taken Comments Blood Pressure 116/70 02/09/2023 5:16 PM CDT Pulse 100 02/09/2023 5:16 PM CDT Temperature 36.8 C (98.3 F) 02/09/2023 5:16 PM CDT Respiratory Rate 22 02/09/2023 5:16 PM CDT Oxygen Saturation 96% 02/09/2023 5:16 PM CDT Inhaled Oxygen Concentration - - Weight 56.7 kg (125 lb) 02/09/2023 5:16 PM CDT Height 154.9 cm (5' 1) 02/09/2023 5:16 PM CDT Body Mass Index 23.62 02/09/2023 5:16 PM CDT Plan of Treatment Health Maintenance Due Date Last Done Comments Cervical Cancer Screening 1992 Depression Screening 1992 Hepatitis C Screening 1992 DTaP/Tdap/Td Vaccine (2 - Tdap) 2003 03/24/1994 Varicella Vaccines (1 of 2 - 13+ 2-dose series) 2005 HPV Vaccines (3 - 3-dose series) 09/12/2009 05/16/2009, 03/13/2009 Hepatitis B Screening 2010 Regular Well Visit/Exam 18-64 08/16/2018 08/16/2017 Influenza Vaccine (#1) 2025 Pneumococcal vaccine <65 Aged Out No longer eligible based on patient's age to complete this topic Insurance [employer] OOS [employer] O[employer] Care Teams Wire Brush Operator Relationship Specialty Start Date End Date No, Physician PCP - General 12/02/20
--- OUTSIDE RECORDS SUMMARY | 2025-07-21 17:09 | XMS_ITS | Clinical Summary ---
Author Organization [facility] Address [address] [place] [address] Phone Care Team Providers Care National Service Officer Name Role Phone Provider, None Primary Care Provider Miquel Garcia MD Unavailable Allergies No known active allergies Medications IBUPROFEN PO Take by mouth as needed. Active Meloxicam 15 MG Tablet Take 15 mg by mouth daily. Active predniSONE (DELTASONE) 10 MG TabletIndicatio ns:Chronic bilateral low back pain with right-sided sciatica 3 tabs once daily x 2 days then 2 tabs once daily x 2 days then 1 daily x 2 days-begin a.m. 06/03/2019 12 Tab 9 Active Additional Information Patient not taking.Reported on 03/06/2023 cyclobenzaprine (FLEXERIL) 5 MG TabletIndicatio ns:Chronic bilateral low back pain with right-sided sciatica Take 1 Tab by mouth 3 times daily. 30 Tab 9 Active Additional Information Patient not taking.Reported on 03/06/2023 Active Problems No known active problems Immunizations Immunization Administration Dates Next Due DTP Vaccine 03/24/1994 Hib Vaccine,unspecified Formulation 03/24/1994 Human Papillomavirus Vaccine (HPV), quadrivalent 05/16/2009,03/13/2009 MMR Vaccine 03/24/1994 OPV 03/24/1994 Family History Medical History Relation Name Comments No Known Problems Half-Brother 1 No Known Problems Half-Brother 2 No Known Problems Half-Sister 1 Asthma Half-Sister 2 No Known Problems Half-Sister 3 No Known Problems Half-Sister 4 Hypertension Maternal Grandmother Hypertension Mother No Known Problems Son 1 No Known Problems Son 2 Relation Name Status Comments Father Unknown Half-Brother 1 Alive Half-Brother 2 Alive Half-Sister 1 Alive Half-Sister 2 Alive Half-Sister 3 Alive Half-Sister 4 Alive Maternal Grandfather Maternal Grandmother Alive Mother Alive Son 1 Alive Son 2 Alive Social History Tobacco Use Types Packs/Day Years Used Date Smoking Tobacco: Never Smokeless Tobacco: Never Tobacco Cessation:Counseling Given: Not Answered Alcohol Use Standard Drinks/Week Comments Yes 1 (1 standard drink = 0.6 oz pur e alcohol) Sexually Active Control Partners Comments Yes Male Comments No Sex and Gender Information Value Date Recorded Sex Assigned at Not on file Legal Sex Female 12:03 AM CDT Gender Identity Not on file Sexual Orientation Not on file Last Filed Vital Signs Vital Sign Reading Time Taken Comments Blood Pressure 102/60 08/29/2024 10:16 AM CDT Pulse 96 08/29/2024 10:16 AM CDT Temperature 36.2 C (97.1 F) 08/29/2024 10:16 AM CDT Respiratory Rate 14 08/29/2024 10:16 AM CDT Oxygen Saturation 98% 08/29/2024 10:16 AM CDT Inhaled Oxygen Concentration - - Weight 62.1 kg (137 lb) 07/11/2024 10:19 AM CDT Height 154.9 cm (5' 1) 07/11/2024 10:19 AM CDT Body Mass Index 25.89 07/11/2024 10:19 AM CDT Plan of Treatment Health Maintenance Due Date Last Done Comments Hepatitis C Virus (HCV) Screening 1992 Human Papillomavirus (HPV) Immunization (3 - 3-dose series) 09/12/2009 05/16/2009, 03/13/2009 Hepatitis B Immunization (1 of 3 - 19+ 3-dose series) 2011 Pap Smear 2013 Cervical Cancer Screening (CCS) 2022 HPV/Cotest 2022 SARS-COV-2 Immunization (1 - 2023- season) 2024 Influenza Immunization (#1) 2025 Respiratory Syncytial Virus (RSV) Immunization (Adult) (1 - 1-dose 75+ series) 2067 DTaP/Tdap/Td Immunization Discontinued 03/24/1994 Meningococcal Immunization (ACWY) Aged Out No longer eligible based on patient's age to complete this topic Pneumococcal Immunization Combined Aged Out No longer eligible based on patient's age to complete this topic Rotavirus Immunization Aged Out No lo nger eligible based on patient's age to complete this topic Insurance [place] Care Teams National Service Officer Relationship Specialty Start Date End Date Provider, None [place] PCP - General 03/06/23 Miquel Alexander MD [address] [address] Consulting Physician Colon and Rectal Surgery 06/22/24
[2025-07-21 17:12] VITALS: BP 120/78; PULSE 80; RESP 18; TEMP 36.6; O2SAT 100
--- NOTE | 2025-07-21 17:15 | ED.URI ---
HPI - URI/Sore Throat General Chief Complaint: Upper Respiratory Infection Stated Complaint: ?sinus Time Seen by Provider: 07/21/25 17:15 History of Present Illness HPI Narrative: 34 y/o female presented for c/o sore throat, nasal congestion and cough. Onset 3 days. Endorses bloody nasal drainage today and is concerned for sinus infection. Endorses children have runny noses. Denies sob,wheezing, n/v/d/f/c. Does not like to take anything for symptoms. Related Data Home Medications ?Medication ?Instructions ?Recorded ?Confirmed ?Last Taken ?Type vitamins with calcium tablet 07/21/25 Unknown History no.72-iron 27 mg-folic acid 1 mg tablet (WesTab Plus) valacyclovir 500 mg tablet mg 07/21/25 Unknown History Allergies Allergy/AdvReac Type Severity Reaction Status Date / Time No Known Allergies Allergy Verified 07/21/25 17:18 Review of Systems Review of Systems: CONSTITUTIONAL: Denies body aches, fever, chills, or sweats. EYES: Denies visual changes, redness, or discharge. ENT: reports sore throat rhinorrhea, congestion, denies otalgia. CARDIOVASCULAR: Denies chest pain, palpitations, or edema. RESPIRATORY: Denies dyspnea. GASTROINTESTINAL: Denies abdominal pain, nausea, vomiting, or diarrhea. SKIN: Denies rash NEUROLOGIC: Denies headache PMFSH Past Medical History Medical History x2 Asthma Surgical History Surgical History Previous section x1 (twins) [place] teeth extracted 2019 Family History Family History Mother Hypertension Social History Social History Smoking status: Never smoker Alcohol intake: never Substance use: never Gender identity (if verbalized by the patient): Female Spiritual care concerns: No Exam Narrative: GENERAL: well-appearing, no acute distress. EYES: conjunctivae clear ENT: Mucous membranes moist. TMs pearly mueller with normal light reflex bilaterally; no tragal tenderness. Oropharynx not erythematous without lesions. Tonsils enlarged and without exudate. No drooling, no hoarseness, no trismus, uvula midline. No tripod positioning, hot potato voice, or soft palate swelling. NECK: Supple. No lymphadenopathy CHEST: Clear to auscultation, breath sounds equal. No respiratory distress, speaks in full sentences. HEART: Regular rate and rhythm. No murmur heard. SKIN: Warm, dry, no rash. NEURO: Alert and oriented x3. Course Course Emergency Course: Patient is aware of diagnosis, understands and agrees to treatment plan. Anticipatory guidance given. Patient agrees to follow-up as directed and is aware of reasons to seek care at the emergency department. Portions of this record may have been created with voice recognition software Level of Care: Express Care Visit MDM - URI/Sore Throat MDM Narrative Medical decision making narrative: neg flu and covid, strep result reviewed with pt. Advise supportive treatments. Patient is appropriate for outpatient treatment and follow-up. Differential Diagnosis Differential diagnosis: Likely upper respiratory infection, viral infection and pharyngitis Discharge Plan Discharge Clinical Impression: Upper respiratory infection Patient Disposition: Home Condition: Stable Instructions: Antibiotic Form, Upper Respiratory Infection (ED) Additional Instructions: Flu and COVID negative. Rapid strep swab was negative today You will be notified in a few days if the culture comes back positive for strep, and appropriate antibiotics will be called in at that time. if symptoms are due to a viral illness, it is not treated with antibiotics. Viral symptoms can be present for up to 10-14 days. Recommendations: Flonase spray and Zyrtec for sinus congestion Tylenol every 8 hours as needed for pain/fever Soft foods, cool liquids, warm tea. Gargle with warm saltwater twice a day. Chloraseptic spray and throat lozenges. Rest and stay hydrated. --Follow up with your PCP --Go to the ER immediately if you cannot swallow your saliva, trouble breathing/wheezing, throat swelling, pain is persistent and severe Patient Language: Pashto Prescriptions: No Action valacyclovir 500 mg tablet WesTab Plus 27 mg iron- 1 mg tablet Follow-up/Referrals: PHYSICIAN,SENIOR CONTRACTS MANAGER [Primary Care Provider, Internal Medicine] Time of Disposition: 17:36
[2025-07-21 17:31] LABS: EDSTREPNEGPOS1 Negative (Negative)
[2025-07-21 17:33] LABS: EDCOVIDSCREEN Negative (Negative)
[2025-07-21 17:34] LABS: EDINFLUASCREEN Negative (Negative); EDINFLUBSCREEN Negative (Negative)
== END 2025-07-21 17:44 | disposition home or self-care (01) ==
PROVIDERS: Emergency Provider Nurse Practitioner Family
DX: J06.9 Acute upper respiratory infection, unspecified (principal); Z20.822 Contact with and (suspected) exposure to COVID-19; J45.909 Unspecified asthma, uncomplicated
CPT/HCPCS: 87426; 87804; 87880; 99213; G0463